=== PATIENT | female | born 1995 | race Hispanic/Latino ===

== ENCOUNTER 2020-10-30 20:02 | Emergency (ER) | payer OTHER ==
[~2020-10-30] VITALS: Ht 152.4 cm; Wt 72.4 kg
[2020-10-31] MEDS ORDERED: MORPHINE 2 MG/ML 1ML VIAL (J2270) IV ONE (05:40)
[2020-10-31] MEDS ORDERED: ONDANSETRON 4MG/2ML VIAL IV ONE (05:40)
[2020-10-31 05:50] LABS: BASO % 0.2 % (0.0-1.0); EOS # 0.1 10^3/uL (0.0-0.5); EOS % 0.9 % (0.0-3.0); HEMATOCRIT 39.9 % (36.0-47.0); LYMPH # 2.7 10^3/uL (1.5-5.0); LYMPH % 27.9 % (24.0-44.0); MEAN CORPUSCULAR HEMOGLOBIN 31.7 pg (27.0-33.0); MEAN CORPUSCULAR HGB CONC 35.1 g/dl (32.0-36.5); MEAN CORPUSCULAR VOLUME 90.5 fl (80.0-96.0); MONO # 0.7 10^3/uL (0.0-0.8); MONO % 7.6 % (2.0-8.0); NEUTROPHILS % 62.9 % (36.0-66.0); PLATELET COUNT, AUTOMATED 336 10^3/uL (150-450); RED BLOOD COUNT 4.41 10^6/uL (4.00-5.40); WHITE BLOOD COUNT 9.5 10^3/uL (4.0-10.0)
[2020-10-31 06:22] LABS: BLOOD UREA NITROGEN 13 MG/DL (7-18); C REACTIVE PROTEIN QUANTITATIV 1.25 MG/DL (0.00-0.30); CALCIUM LEVEL 8.6 MG/DL (8.5-10.1); CARBON DIOXIDE LEVEL 24 MEQ/L (21-32); CHLORIDE LEVEL 108 MEQ/L (98-107); GLOMERULAR FILTRATION RATE > 60.0 (>60); GLUCOSE, FASTING 99 MG/DL (70-100); POTASSIUM SERUM 4.1 MEQ/L (3.5-5.1); SODIUM LEVEL 139 MEQ/L (136-145)
--- NOTE | 2020-10-31 07:09 | REPVR ---
PROCEDURE INFORMATION: Exam: US Left Breast Limited; Cellulitis or Abscess Evaluation Exam date and time: 10/31/2020 5:54 AM Age: 24 years old Clinical indication: Breast pain; Left; Additional info: 3x4cm mass R/O abscess TECHNIQUE: Imaging protocol: Left breast ultrasound. Exam limited to the quadrant(s) of clinical concern. Exam focused on the evaluation of cellulitis or abscess. Exam is an emergent request and a non-BIRADS study. COMPARISON: No relevant prior studies available. FINDINGS: Breasts: Sonographic evaluation of the left breast was performed at 12:00 in the region of breast pain and mass. In the region of clinical concern, there are three cystic structures, the largest measuring 2.7 x 2.2 x 2.3 cm. The other two cystic structures measure 2.1 x 1.4 x 1.8 cm and 1.1 x 0.8 x 0.9 cm respectively. There is a background of dense fibrocystic tissue. IMPRESSION: In the region of clinical concern at 12:00 left breast, there are three cystic structures measuring 2.7 cm, 2.1 cm and 1.1 cm respectively. Although this may represent fibrocystic change, abscesses would need to be considered in the appropriate clinical setting. Electronically signed by: John Goldberg On 10/31/2020 07:08:20 AM
[2020-10-31 07:35] VITALS: BP 116/70
--- NOTE | 2020-10-31 08:45 | ED PDOC ---
Post-Departure Follow-Up radiology rpeort faxed to [facility] Maddie Carter MD Oct 31, 2020 08:45
== END 2020-10-31 07:38 | disposition home or self-care (01) ==
LOC: M ED 20:02
DX: N60.02 Solitary cyst of left breast (principal)

== ENCOUNTER 2022-12-08 18:18 | Outpatient (CLI) | payer OTHER ==
[~2022-12-08] VITALS: Ht 152.4 cm; Wt 72.9 kg
[2022-12-08 18:39] VITALS: BP 126/65
[2022-12-08] MEDS ORDERED: HOME MED LIST COMPLETE! XX SCH (18:45)
[2022-12-08 21:38] LABS: GC DNA AMPLIFICATION NEGATIVE (NEGATIVE)
== END 2022-12-08 19:44 | disposition home or self-care (01) ==
LOC: M LDO 18:18
PROVIDERS: ATTEND Obstetrics & Gynecology
DX: O46.93 Antepartum hemorrhage, unspecified, third trimester (principal); Z3A.30 30 weeks gestation of pregnancy; O36.8130 Decreased fetal movements, third trimester, not applicable or unspecified
CPT/HCPCS: 59025; 76815; 87661; 87810; 87850; G0463

== ENCOUNTER 2023-01-30 11:16 | Inpatient (IN) | payer OTHER ==
[~2023-01-30] VITALS: Ht 152.4 cm; Wt 75.8 kg
[2023-01-30] VITALS (10 sets, daily range): BP systolic 77–137; BP diastolic 53–79
[2023-01-30] MEDS ORDERED: HOME MED LIST COMPLETE! XX SCH (11:55)
[2023-01-30] MEDS ORDERED: LACTATED RINGER'S 1000 ML IV STA (11:58)
[2023-01-30] MEDS ORDERED: CARBOPROST TROMETHAMINE 250 MCG/ML AMP IM PRN (12:00)
[2023-01-30] MEDS ORDERED: METHYLERGONOVINE MALEATE 0.2MG/ML 1ML VIAL IM PRN (12:00)
[2023-01-30] MEDS ORDERED: OXYTOCIN DRIP 30 UNITS in IV 1 EA IV PRN ×6 (12:00)
[2023-01-30] MEDS ORDERED: TRANEXAMIC ACID INJection 1,000 MG in NS 100 ML IV PRN (12:00)
[2023-01-30] MEDS ORDERED: LIDOCAINE 1% MDV 20ML VIAL INFIL PRN (12:00)
[2023-01-30] MEDS ORDERED: OXYTOCIN INJ 10UNITS/ML 1ML VIAL IM PRN (12:00)
[2023-01-30 13:00] LABS: HEMATOCRIT 37.9 % (36.0-47.0); HEMOGLOBIN 12.9 g/dl (12.0-15.5); MEAN CORPUSCULAR HEMOGLOBIN 29.5 pg (27.0-33.0); MEAN CORPUSCULAR VOLUME 86.7 fl (80.0-96.0); PLATELET COUNT, AUTOMATED 324 10^3/uL (150-450); RED BLOOD COUNT 4.37 10^6/uL (4.00-5.40); WHITE BLOOD COUNT 8.2 10^3/uL (4.0-10.0)
[2023-01-30 13:03] LABS: APPEARANCE, URINE HAZY (CLEAR); BACTERIA, URINE AUTO NEGATIVE (NEGATIVE); BILIRUBIN, URINE AUTO NEGATIVE (NEGATIVE); BLOOD, URINE BLOOD NEGATIVE (NEGATIVE); COLOR, URINE YELLOW (YELLOW); GLUCOSE, URINE (UA) AUTO NEGATIVE (NEGATIVE); KETONE, URINE AUTO NEGATIVE (NEGATIVE); LEUKOCYTE ESTERASE, URINE AUTO 1+ (NEGATIVE); MUCUS, URINE SMALL (NEGATIVE); NITRITE, URINE AUTO NEGATIVE (NEGATIVE); PROTEIN, URINE AUTO NEGATIVE (NEGATIVE); RBC, URINE AUTO 1 /HPF (0-3); SPECIFIC GRAVITY URINE AUTO 1.019 (1.002-1.035); SQUAMOUS EPITHELIAL CELL UR AU 19 /HPF (0-6); UROBILINOGEN, URINE AUTO 0.2 mg/dL (0.0-2.0); WBC, URINE AUTO 1 /HPF (0-3)
[2023-01-30 13:20] LABS: TOTAL PROTEIN,RANDOM URINE 24.6 MG/DL (0.0-14.0)
[2023-01-30 13:24] LABS: LDH LACTATE DEHYDROGENASE 191 U/L (120-246)
[2023-01-30 13:25] LABS: CREATININE,RANDOM URINE 108.8 MG/DL
[2023-01-30 13:25] LABS: ALT/SGPT 10 U/L (7.0-40); AST/SGOT 17 U/L (<34); BILIRUBIN,TOTAL 0.4 MG/DL (0.3-1.2); CREATININE FOR GFR 0.45 MG/DL (0.55-1.30); GLOMERULAR FILTRATION RATE > 60.0 (>60)
[2023-01-30 13:57] LABS: HIV 1&2 SCREEN NEGATIVE (NEGATIVE)
[2023-01-30 13:59] LABS: URIC ACID 4.1 MG/DL (3.1-7.8)
[2023-01-30] MEDS ORDERED: miSOPROStol 50MCG 1/2 TABLET PO SCH (14:40)
[2023-01-30] MEDS: LR 1,000 ML IV SCH ×2 (18:34→18:35)
[2023-01-31] VITALS (20 sets, daily range): BP systolic 81–120; BP diastolic 48–73; TEMP 99.2; O2SAT 97–98
[2023-01-31] MEDS: LR 1,000 ML IV SCH ×4 (04:00→15:45)
[2023-01-31] MEDS ORDERED: ePHEDrine SULFATE 25 MG/5 ML(5MG/ML) SYRINGE IVP PRN (05:35)
[2023-01-31] MEDS ORDERED: NALOXONE INJ 0.4MG/1ML VIAL IV PRN (05:35)
[2023-01-31] MEDS ORDERED: FENTANYL/ROPIVACAINE/NACL BAG 100 ML EPIDURAL SCH (05:35)
[2023-01-31] MEDS ORDERED: EPIDURAL/PCA KEYS XX PRN (05:35)
[2023-01-31] MEDS ORDERED: ONDANSETRON 4MG 2ML VIAL IV PRN ×2 (05:35→12:45)
[2023-01-31] MEDS ORDERED: diphenhydrAMINE 50MG/ML VIAL IV PRN (05:35)
[2023-01-31] MEDS ORDERED: LR 500 ML IV PRN (05:35)
[2023-01-31] MEDS ORDERED: OXYTOCIN DRIP 30 UNITS in IV 1 EA IV SCH ×5 (08:00→12:45)
[2023-01-31] MEDS ORDERED: GENTAMICIN SULFATE IV ONE (11:35)
[2023-01-31] MEDS ORDERED: FLUID PLACE HOLDER IV ONE (11:35)
[2023-01-31] MEDS ORDERED: AMPICILLIN SOD/SULBACTAM SOD 2 GM in D5W MINI-BAG PLUS 100 ML IV ONE (11:35)
[2023-01-31] MEDS ORDERED: LIDOCAINE 2% W/EPINEPHRINE 20ML VIAL **PRES FREE As Ordered ONE (11:46)
[2023-01-31] MEDS ORDERED: CHLOROPROCAINE PRES. FREE 3% 20ML VIAL As Ordered ONE (11:46)
[2023-01-31] MEDS ORDERED: BICITRA 30ML SOLN UDC PO STA (11:48)
[2023-01-31] MEDS ORDERED: ceFAZolin 2 GM/D5W 50 ML IV BAG As Ordered ONE (11:52)
[2023-01-31] MEDS ORDERED: BICITRA 30ML SOLN UDC As Ordered ONE (11:52)
[2023-01-31] MEDS ORDERED: ceFAZolin SOD 2 GM in IV 1 EA IV STA (11:53)
[2023-01-31] MEDS ORDERED: ceFAZolin SOD 2 GM in IV 1 EA IV ONE (11:55)
[2023-01-31] MEDS ORDERED: ACETAMINOPHEN 500 MG TAB PO ONE (12:00)
[2023-01-31] MEDS ORDERED: dexmedeTOMIDine (4MCG/ML)200MCG/50ML BTL (PRECEDEX) As Ordered ONE (12:22)
[2023-01-31 12:25] LABS: CORD GAS ABE V -7.5; CORD GAS HCO3 V 20.1 MMOL/L; CORD GAS O2 SAT V 25.8 %; CORD GAS PCO2 V 48.1 mmHg; CORD GAS PH V 7.239 UNITS; CORD GAS PO2 V 14.6 mmHg; CORD GAS SBC V 16.8 MMOL/L; CORD GAS TCO2 V 21.6 MMOL/L
[2023-01-31 12:29] LABS: CORD GAS ABE A -9.7; CORD GAS HCO3 A 18.6 MMOL/L; CORD GAS O2 SAT A 32.3 %; CORD GAS PCO2 A 49.1 mmHg; CORD GAS PH A 7.197 UNITS; CORD GAS PO2 A 20.2 mmHg; CORD GAS SBC A 15.5 MMOL/L; CORD GAS TCO2 A 20.1 MMOL/L
[2023-01-31] MEDS ORDERED: MORPHINE PRES-FREE INJ 10 MG/10 ML VIAL As Ordered ONE (12:38)
[2023-01-31] MEDS ORDERED: MORPHINE 2 MG/ML 1ML VIAL IV PRN (12:45)
[2023-01-31] MEDS ORDERED: MOM 30ML SUSPENSION UDC PO PRN (12:45)
[2023-01-31] MEDS ORDERED: RHOGAM 300MCG (1500IU) INJ IM SCH (12:45)
[2023-01-31] MEDS ORDERED: LR 1,000 ML IV SCH (12:45)
[2023-01-31] MEDS ORDERED: oxyCODONE 5MG TAB PO PRN (12:45)
[2023-01-31] MEDS ORDERED: METHYLERGONOVINE MALEATE 0.2 MG TAB PO PRN (12:45)
[2023-01-31] MEDS ORDERED: METOCLOPRAMIDE INJ 10MG/2ML VIAL IV PRN (12:45)
[2023-01-31] MEDS ORDERED: CLINDAMYCIN 900 MG in IV 1 EA IV SCH (13:00)
[2023-01-31] MEDS ORDERED: GENTAMICIN 380 MG in D5W 50 ML IV ONE (13:00)
[2023-01-31] MEDS ORDERED: ONDANSETRON 4MG 2ML VIAL As Ordered ONE (13:01)
[2023-01-31] MEDS ORDERED: PHENYLephrine 500MCG 5ML (100MCG/ML) SYRINGE As Ordered ONE (13:01)
[2023-01-31] MEDS ORDERED: ePHEDrine SULFATE 25 MG/5 ML(5MG/ML) SYRINGE As Ordered ONE (13:01)
[2023-01-31] MEDS ORDERED: KETOROLAC 60MG 2ML VIAL As Ordered ONE (13:01)
[2023-01-31] MEDS ORDERED: OXYTOCIN 30UNITS IN 0.9% NaCl 500ML IV BAG As Ordered ONE ×2 (13:02→13:06)
[2023-01-31] MEDS ORDERED: oxyCODONE 5MG TAB As Ordered ONE (13:44)
[2023-01-31] MEDS: oxyCODONE 5MG TAB PO PRN (13:45)
[2023-01-31] MEDS: ACETAMINOPHEN 500 MG TAB PO SCH (17:32)
[2023-01-31] MEDS ORDERED: CLINDAMYCIN 900 MG in IV 1 EA IV ONE (18:00)
[2023-01-31] MEDS: AMPICILLIN SOD 2 GM in D5W MINI-BAG PLUS 100 ML IV SCH (19:43)
[2023-01-31] MEDS: KETOROLAC 30 MG/ML 1ML VIAL IV SCH (19:43)
[2023-01-31] MEDS: DOCUSATE SODIUM 100MG CAPSULE PO SCH (21:00)
[2023-02-01] MEDS: KETOROLAC 30 MG/ML 1ML VIAL IV SCH ×2 (00:49→07:21)
[2023-02-01] MEDS: ACETAMINOPHEN 500 MG TAB PO SCH ×4 (00:49→19:36)
[2023-02-01] MEDS: AMPICILLIN SOD 2 GM in D5W MINI-BAG PLUS 100 ML IV SCH ×3 (00:50→12:35)
[2023-02-01 06:00] VITALS: BP 81/50
[2023-02-01 06:50] LABS: HEMATOCRIT 28.9 % (36.0-47.0); MEAN CORPUSCULAR HEMOGLOBIN 29.8 pg (27.0-33.0); MEAN CORPUSCULAR HGB CONC 33.2 g/dl (32.0-36.5); MEAN CORPUSCULAR VOLUME 89.8 fl (80.0-96.0); PLATELET COUNT, AUTOMATED 204 10^3/uL (150-450); RED BLOOD COUNT 3.22 10^6/uL (4.00-5.40); WHITE BLOOD COUNT 12.2 10^3/uL (4.0-10.0)
[2023-02-01 06:57] LABS: HEMOGLOBIN 9.6 g/dl (12.0-15.5)
[2023-02-01] MEDS: DOCUSATE SODIUM 100MG CAPSULE PO SCH ×2 (09:32→19:40)
[2023-02-01] MEDS: PRENATAL VITAMINS CHEWABLE TABLET PO SCH (09:32)
[2023-02-01 10:00] VITALS: BP 95/53; O2SAT 98
[2023-02-01 14:00] VITALS: BP 96/53; O2SAT 98
[2023-02-01 19:30] VITALS: BP 111/60; O2SAT 100
[2023-02-01] MEDS: SIMETHICONE 80MG CHEW TAB PO PRN (19:42)
[2023-02-01 22:00] VITALS: BP 107/58; O2SAT 97
[2023-02-02] MEDS: SIMETHICONE 80MG CHEW TAB PO PRN ×2 (01:57→13:17)
[2023-02-02] MEDS: ACETAMINOPHEN 500 MG TAB PO SCH ×3 (01:57→13:17)
[2023-02-02 02:00] VITALS: BP 106/56; O2SAT 100
[2023-02-02 06:00] VITALS: BP 105/62; O2SAT 99
[2023-02-02] MEDS ORDERED: IBUPROFEN 800 MG TAB PO PRN (07:20)
[2023-02-02] MEDS ORDERED: IBUPROFEN 800 MG TAB PO ONE (08:00)
[2023-02-02] MEDS ORDERED: MEASLES,MUMPS,RUBELLA VACCINE INJ (MMR-II) SC.IMMUN ONE (09:00)
[2023-02-02] MEDS: DOCUSATE SODIUM 100MG CAPSULE PO SCH (09:38)
[2023-02-02] MEDS: oxyCODONE 5MG TAB PO PRN (09:39)
[2023-02-02] MEDS: PRENATAL VITAMINS CHEWABLE TABLET PO SCH (09:40)
[2023-02-02 10:00] VITALS: BP 121/59; O2SAT 99
== END 2023-02-02 13:50 | disposition home or self-care (01) | DRG 771 ==
LOC: M LDO 11:16 → M LDI 11:19 → M OBS 01-31 14:18
PROVIDERS: ADMIT Obstetrics & Gynecology; ATTEND Obstetrics & Gynecology
PROC: 3E033VJ Introduction of Other Hormone into Peripheral Vein, Percutaneous Approach (ICD-10-PCS; 2023-01-30)
PROC: 10D00Z1 Extraction of Products of Conception, Low, Open Approach (ICD-10-PCS; principal; 2023-01-31 12:05)
DX: O41.03X0 Oligohydramnios, third trimester, not applicable or unspecified (principal); O41.1230 Chorioamnionitis, third trimester, not applicable or unspecified; Z3A.38 38 weeks gestation of pregnancy; O99.214 Obesity complicating childbirth; E66.9 Obesity, unspecified; O76 Abnormality in fetal heart rate and rhythm complicating labor and delivery; O69.81X0 Labor and delivery complicated by cord around neck, without compression, not applicable or unspecified; O69.89X0 Labor and delivery complicated by other cord complications, not applicable or unspecified; Z37.0 Single live birth